=== PATIENT | male | born 1975 | race Caucasian/White ===

== ENCOUNTER 2017-11-29 23:17 | Inpatient (IN) | payer OTHER ==
[~2017-11-29] VITALS: Ht 193 cm; Wt 119.3 kg
[~2017-11-29 23:17] MED LIST: CRESTOR10 MG PO; TAMS0.4C97 PO; TOPI50TA8 PO; TRAM50TA PO
--- NOTE | 2017-11-29 23:51 | PHYS DOC ---
Past Medical History Past Medical History: High Cholesterol, Migraines Past Surgical History: Other Additional Past Surgical Histo: DUAL THORACOTOMY Alcohol Use: None Drug Use: None Adult General Chief Complaint Chief Complaint: CHEST PAIN [facility] HPI Patient is a 42 year old male who presents with chest pain. Patient had onset of left-sided chest pain around 10 PM this evening. He was at rest when the pain started. Pain is not radiating. Pain does not cause him to fill short of breath. The pain is worse with deep inspiration. There are no other aggravating or alleviating factors. He had an episode similarly about 1.5 years earlier. He states he had a negative stress test at that time. The patient does have a remote history of multiple recurring pneumothoraces which were ultimately treated with video-assisted thoracoscopy and pleurodesis. The patient states he has had no known recurrent symptoms since the procedure. He does not have any personal coronary artery disease history. Review of Systems Review of Systems Constitutional: Denies fever or chills Eyes: Denies change in visual acuity HENT: Denies nasal congestion Respiratory: Denies cough or shortness of breath Cardiovascular: No additional information not addressed in HPI GI: Denies abdominal pain Musculoskeletal: Denies back pain Integument: Denies rash or skin lesions Neurologic: Denies headache All other systems were reviewed and found to be within normal limits, except as documented in this note. Current Medications Current Medications Current Medications Medications (Trade) Dose Ordered Sig/Venkat Start Time Stop Time Status Last Admin Dose Admin Acetaminophen (Tylenol) 650 mg PRN Q4HRS PRN 11/30/17 02:30 12/01/17 02:29 UNV Ketorolac Tromethamine (Toradol 30mg Vial) 30 mg 1X ONCE 11/30/17 02:15 11/30/17 02:16 DC 11/30/17 02:04 30 MG Allergies Allergies Allergies Coded Allergies Type Severity Reaction Last Updated Verified Penicillins Allergy Intermediate 05/27/17 Yes morphine Adverse Reaction Intermediate Nausea 05/27/17 Yes Physical Exam Physical Exam Constitutional: Well developed, well nourished, no acute distress, non-toxic appearance HENT: Normocephalic, atraumatic, bilateral external ears normal, oropharynx moist Neck: Normal range of motion Cardiovascular:Heart rate regular rhythm, no murmur Lungs & Thorax: Bilateral breath sounds clear to auscultation Abdomen: Bowel sounds normal, soft, no tenderness Skin: Warm, dry, no erythema Extremities: No edema Neurologic: Alert and oriented X 3 Psychologic: Affect normal Current Patient Data Vital Signs Vital Signs Date Time Temp Pulse Resp B/P (MAP) Pulse Ox O2 Delivery O2 Flow Rate FiO2 11/30/17 02:06 64 24 124/70 (88) 98 11/29/17 23:17 96.9 Room Air 96.9 Lab Values Laboratory Tests Test 11/30/17 00:15 White Blood Count 12.0 x10^3/uL (4.0-11.0) H Red Blood Count 5.29 x10^6/uL (4.30-5.70) Hemoglobin 15.4 g/dL (13.0-17.5) Hematocrit 44.3 % (39.0-53.0) Mean Corpuscular Volume 84 fL (79-100) Mean Corpuscular Hemoglobin 29 pg (25-35) Mean Corpuscular Hemoglobin Concent 35 g/dL (31-37) Red Cell Distribution Width 13.4 % (11.5-14.5) Platelet Count 361 x10^3/uL (140-400) Neutrophils (%) (Auto) 88 % (31-73) H Lymphocytes (%) (Auto) 8 % (24-48) L Monocytes (%) (Auto) 3 % (0-9) Eosinophils (%) (Auto) 0 % (0-3) Basophils (%) (Auto) 0 % (0-3) Neutrophils # (Auto) 10.6 x10^3uL (1.8-7.7) H Lymphocytes # (Auto) 1.0 x10^3/uL (1.0-4.8) Monocytes # (Auto) 0.4 x10^3/uL (0.0-1.1) Eosinophils # (Auto) 0.0 x10^3/uL (0.0-0.7) Basophils # (Auto) 0.0 x10^3/uL (0.0-0.2) Segmented Neutrophils % 84 % (35-66) H Band Neutrophils % 1 % (0-9) Lymphocytes % 10 % (24-48) L Monocytes % 4 % (0-10) Eosinophils % 1 % (0-5) Platelet Estimate Adequate (ADEQUATE) Prothrombin Time 13.3 SEC (11.7-14.0) Prothrombin Time INR 1.1 (0.8-1.1) PTT 31 SEC (24-38) D-Dimer (Juani) < 0.27 ug/mlFEU Sodium Level 142 mmol/L (136-145) Potassium Level 3.6 mmol/L (3.5-5.1) Chloride Level 105 mmol/L (98-107) Carbon Dioxide Level 26 mmol/L (21-32) Anion Gap 11 (6-14) Blood Urea Nitrogen 13 mg/dL (8-26) Creatinine 1.0 mg/dL (0.7-1.3) Estimated GFR (Cockcroft-Gault) 82.3 Glucose Level 123 mg/dL (70-99) H Calcium Level 9.9 mg/dL (8.5-10.1) Troponin I Quantitative < 0.017 ng/mL (0.000-0.055) LS-Ypn-C-Type Natriuretic Peptide 28 pg/mL (0-124) Laboratory Tests 11/30/17 00:15 Laboratory Tests 11/30/17 00:15 EKG EKG No STEMI. NSR Interpretation Time: 23:20 Radiology/Procedures Radiology/Procedures No pneumothorax seen Course & Med Decision Making Course & Med Decision Making Pertinent Labs and Imaging studies reviewed. (See chart for details) 23:20: patient is seen and examined. No acute distress. EKG normal. Standard CP workup ordered. Offered pain meds but declines the need at this time. 02:20: Troponin is not elevated. I do not see any pneumothorax on the chest x- ray. Troponin was not elevated. EKG is nonacute. I discussed with this patient the option of remaining in the ER for repeat troponin and EKG versus admission to the hospital for chest pain rule out. The patient does not feel comfortable going home as he is concerned about his pain symptoms. Consult was placed for cardiology to evaluate the patient. Given his respiratory history of frequent pneumothoraces, I did also place a consult for pulmonology to see the patient. Patient is agreeable to the plan of care. All of his questions are answered prior to admission. Dragon Disclaimer Dragon Disclaimer This electronic medical record was generated, in whole or in part, using a voice recognition dictation system. Departure Departure Referrals: KENDELL REYNOSO MD (PCP) CHARLIE WEIR DO Nov 29, 2017 23:51
[2017-11-30 00:28] LABS: BASO % 0 % (0-3); EOS % 0 % (0-3); HEMATOCRIT 44.3 % (39.0-53.0); HEMOGLOBIN 15.4 g/dL (13.0-17.5); LYMPH % 8 % (24-48); MEAN CORPUSCULAR HEMOGLOBIN 29 pg (25-35); MEAN CORPUSCULAR HGB CONC 35 g/dL (31-37); MEAN CORPUSCULAR VOLUME 84 fL (79-100); MONO # 0.4 x10^3/uL (0.0-1.1); MONO % 3 % (0-9); NEUT # 10.6 x10^3uL (1.8-7.7); NEUT % 88 % (31-73); PLATELET COUNT 361 x10^3/uL (140-400); RED BLOOD COUNT 5.29 x10^6/uL (4.30-5.70); RED CELL DISTRIBUTION WIDTH 13.4 % (11.5-14.5)
[2017-11-30 00:39] LABS: CALCIUM 9.9 mg/dL (8.5-10.1); GFR 82.3; PARTIAL THROMBOPLASTIN TIME 31 SEC (24-38); POTASSIUM 3.6 mmol/L (3.5-5.1); PROTHROMBIN TIME PATIENT 13.3 SEC (11.7-14.0)
[2017-11-30 00:42] LABS: D-DIMER < 0.27 ug/mlFEU (0.00-0.50)
[2017-11-30 00:55] LABS: % BANDS 1 % (0-9); % EOS 1 % (0-5); % LYMPHS 10 % (24-48); % MONOS 4 % (0-10); % SEGS 84 % (35-66)
[2017-11-30 00:56] LABS: PLT ESTIMATE ADEQUATE (ADEQUATE)
[2017-11-30] MEDS ORDERED: KETOROLAC 30 MG/ML VIAL. IV ONE ×2 (02:00→02:15)
[2017-11-30] MEDS ORDERED: ACETAMINOPHEN 325 MG TABLET. PO PRN (02:30)
[2017-11-30 03:16] VITALS: BP 113/72
[2017-11-30 07:00] VITALS: BP 116/69
--- NOTE | 2017-11-30 08:07 | RAD ---
EXAM: CHEST 1 VIEW INDICATION: History of anxiety COMPARISON: None available. TECHNIQUE: Single portable radiograph of the chest FINDINGS: The cardiac silhouette is unremarkable. The lungs are clear bilaterally. The costophrenic sulci are clear and well demarcated. IMPRESSION: No radiographic evidence of an acute cardiopulmonary process. Electronically signed by: Lonnie Macdonald MD (11/30/2017 8:03 AM) [facility]
--- NOTE | 2017-11-30 09:30 | EKG ---
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
--- NOTE | 2017-11-30 10:11 | CONS ---
DATE OF CONSULTATION: REASON FOR CONSULTATION: Chest pain. HISTORY OF PRESENT ILLNESS: The patient is a pleasant 42-year-old man with a past medical history as noted below, who presents to the hospital in the setting of acute onset of chest pain approximately 10:00 p.m. on the night of presentation. He describes classic pleuritic chest pain. In the ER, initial evaluation was unremarkable for any cardiac pathology. In speaking with the patient, he denies any exertional dyspnea, orthopnea, PND or lower extremity edema. He is able to ambulate and do work around the house without any significant limitations. He occasionally does have some pain with deep inspiration. He has had this pain ever since he has had multiple pneumothoraces, status post VATS procedures. He also reports that he exercises regularly over the last 2-3 months and has been biking 5-8 miles in the morning without any significant limitations. PAST MEDICAL HISTORY: 1. Multiple pneumothoraces, treated as above. 2. Atypical chest pain, status post stress test 1.5 years ago, which was unremarkable, according to the patient. SOCIAL HISTORY: The patient denies any alcohol, tobacco or illicit drug use. 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 He is engaged. FAMILY HISTORY: Noncontributory. REVIEW OF SYSTEMS: Negative for 10 out of 14 systems reviewed, unless otherwise mentioned above in HPI. ALLERGIES: No known drug allergies. CURRENT MEDICATIONS: No current cardiovascular medication. PHYSICAL EXAMINATION: VITAL SIGNS: Stable. GENERAL: He is alert and oriented, no acute distress. HEAD AND NECK: Unremarkable. CARDIAC: Regular rate and rhythm without murmurs, rubs or gallops. LUNGS: Clear to auscultation bilaterally. ABDOMEN: Soft, nontender, nondistended. EXTREMITIES: No clubbing, cyanosis or edema. NEUROLOGIC: No focal deficits. MUSCULOSKELETAL: No trauma. DIAGNOSTIC STUDIES: EKG is unremarkable. Cardiac enzymes are negative x 2. Otherwise, no acute laboratory abnormalities noted. IMPRESSION: Noncardiac chest pain, likely pleuritic. RECOMMENDATIONS: No further cardiac testing necessary at this time. I spoke with the patient and gave him our office information. Should he continue to have any pain, could consider outpatient CT coronary angiogram for further delineation of any obstructive coronary pathology, but this is highly unlikely given he has had negative cardiac enzymes and no obvious symptoms to suggest any cardiac pathology. Await pulmonary evaluation, but otherwise the patient can be discharged from a cardiac standpoint. Thank you for this consultation. HALIMA ARREOLA MD DR: BRENDON/eric JOB#: [id number] / [id number]
--- NOTE | 2017-11-30 10:28 | PDOC1 ---
History and Physical Date of Admission Date of Admission 11/30/17 Identification/Chief Complaint Chief Complaint pleuretic type chest pain Source Source: Chart review, Patient History of Present Illness History of Present Illness Patient is a 42 year old male who presents with chest pain. Patient had onset of left-sided chest pain around 10 PM last night . He was watching TV resting when the pain started. Pain is not radiating. The pain is worse with deep inspiration. There are no other aggravating or alleviating factors. He had an episode similarly about 1.5 years earlier, at that time had a negative stress test at that time. The patient does have a history of multiple recurring pneumothoraces which were ultimately treated with video-assisted thoracoscopy and pleurodesis. The patient states he has had no known recurrent symptoms since the procedure but the pain is similar to the pneumothorax pain . denies N/ V or significant SOB Past Medical History Cardiovascular: Hyperlipidemia Pulmonary: Other (recurrent pneumothorax s/p pleuradesis) CENTRAL NERVOUS SYSTEM: Other (headaches) GI: GERD Past Surgical History Past Surgical History: Tonsillectomy, Other (pleuradesis) Family History Family History: Hypertension Social History Smoke: No ALCOHOL: none Drugs: None Current Problem List Problem List Problems Medical Problems: (1) Chest pain Status: Acute (2) History of pneumothorax Status: Acute Current Medications Current Medications Current Medications Medications (Trade) Dose Ordered Sig/Venkat Start Time Stop Time Status Last Admin Dose Admin Acetaminophen (Tylenol) 650 mg PRN Q4HRS PRN 11/30/17 02:30 12/01/17 02:29 Ketorolac Tromethamine (Toradol 30mg Vial) 30 mg 1X ONCE 11/30/17 02:15 11/30/17 02:16 DC 11/30/17 02:04 30 MG Allergies Allergies Allergies Coded Allergies Type Severity Reaction Last Updated Verified Penicillins Allergy Intermediate 05/27/17 Yes morphine Adverse Reaction Intermediate Nausea 05/27/17 Yes ROS Review of System CONSTITUTIONAL: No fever or chills EYES: No recent changes SKIN: No rash or itching CARDIOVASCULAR: as above chest pain, No syncope, palpitations, or edema RESPIRATORY: No SOB or cough GASTROINTESTINAL: No nausea, vomiting or abdominal pain NEUROLOGICAL: No headaches or weakness ENDOCRINE: No cold or heat intolerance GENITOURINARY: No urgency or frequency of urination MUSCULOSKELETAL: No back pain or joint pain LYMPHATICS: No enlarged lymph nodes PSYCHIATRIC: No anxiety or depression Physical Exam Physical Exam GEN.: No apparent distress. Alert and oriented. HEENT: Head is normocephalic, atraumatic NECK: Supple. LUNGS: Clear to auscultation. HEART: RRR, S1, S2 present. Peripheral pulses intact ABDOMEN: Soft, nontender. Positive bowel sounds. EXTREMITIES: Without any cyanosis. NEUROLOGIC: Normal speech, normal tone PSYCHIATRIC: Normal affect, normal mood. SKIN: No ulcerations Vitals Vitals Vital Signs Date Time Temp Pulse Resp B/P (MAP) Pulse Ox O2 Delivery O2 Flow Rate FiO2 11/30/17 07:45 Room Air 11/30/17 07:00 97.9 64 18 116/69 (85) 98 97.9 Labs Labs Laboratory Tests Test 11/30/17 00:15 11/30/17 05:15 11/30/17 08:30 White Blood Count 12.0 x10^3/uL (4.0-11.0) Red Blood Count 5.29 x10^6/uL (4.30-5.70) Hemoglobin 15.4 g/dL (13.0-17.5) Hematocrit 44.3 % (39.0-53.0) Mean Corpuscular Volume 84 fL (79-100) Mean Corpuscular Hemoglobin 29 pg (25-35) Mean Corpuscular Hemoglobin Concent 35 g/dL (31-37) Red Cell Distribution Width 13.4 % (11.5-14.5) Platelet Count 361 x10^3/uL (140-400) Neutrophils (%) (Auto) 88 % (31-73) Lymphocytes (%) (Auto) 8 % (24-48) Monocytes (%) (Auto) 3 % (0-9) Eosinophils (%) (Auto) 0 % (0-3) Basophils (%) (Auto) 0 % (0-3) Neutrophils # (Auto) 10.6 x10^3uL (1.8-7.7) Lymphocytes # (Auto) 1.0 x10^3/uL (1.0-4.8) Monocytes # (Auto) 0.4 x10^3/uL (0.0-1.1) Eosinophils # (Auto) 0.0 x10^3/uL (0.0-0.7) Basophils # (Auto) 0.0 x10^3/uL (0.0-0.2) Segmented Neutrophils % 84 % (35-66) Band Neutrophils % 1 % (0-9) Lymphocytes % 10 % (24-48) Monocytes % 4 % (0-10) Eosinophils % 1 % (0-5) Platelet Estimate Adequate (ADEQUATE) Prothrombin Time 13.3 SEC (11.7-14.0) Prothromb Time International Ratio 1.1 (0.8-1.1) Activated Partial Thromboplast Time 31 SEC (24-38) D-Dimer (Juani) < 0.27 ug/mlFEU Sodium Level 142 mmol/L (136-145) Potassium Level 3.6 mmol/L (3.5-5.1) Chloride Level 105 mmol/L (98-107) Carbon Dioxide Level 26 mmol/L (21-32) Anion Gap 11 (6-14) Blood Urea Nitrogen 13 mg/dL (8-26) Creatinine 1.0 mg/dL (0.7-1.3) Estimated GFR (Cockcroft-Gault) 82.3 Glucose Level 123 mg/dL (70-99) Calcium Level 9.9 mg/dL (8.5-10.1) Troponin I Quantitative < 0.017 ng/mL (0.000-0.055) < 0.017 ng/mL (0.000-0.055) < 0.017 ng/mL (0.000-0.055) BH-Jpi-T-Type Natriuretic Peptide 28 pg/mL (0-124) Laboratory Tests Test 11/30/17 00:15 11/30/17 05:15 11/30/17 08:30 White Blood Count 12.0 x10^3/uL (4.0-11.0) Red Blood Count 5.29 x10^6/uL (4.30-5.70) Hemoglobin 15.4 g/dL (13.0-17.5) Hematocrit 44.3 % (39.0-53.0) Mean Corpuscular Volume 84 fL (79-100) Mean Corpuscular Hemoglobin 29 pg (25-35) Mean Corpuscular Hemoglobin Concent 35 g/dL (31-37) Red Cell Distribution Width 13.4 % (11.5-14.5) Platelet Count 361 x10^3/uL (140-400) Neutrophils (%) (Auto) 88 % (31-73) Lymphocytes (%) (Auto) 8 % (24-48) Monocytes (%) (Auto) 3 % (0-9) Eosinophils (%) (Auto) 0 % (0-3) Basophils (%) (Auto) 0 % (0-3) Neutrophils # (Auto) 10.6 x10^3uL (1.8-7.7) Lymphocytes # (Auto) 1.0 x10^3/uL (1.0-4.8) Monocytes # (Auto) 0.4 x10^3/uL (0.0-1.1) Eosinophils # (Auto) 0.0 x10^3/uL (0.0-0.7) Basophils # (Auto) 0.0 x10^3/uL (0.0-0.2) Segmented Neutrophils % 84 % (35-66) Band Neutrophils % 1 % (0-9) Lymphocytes % 10 % (24-48) Monocytes % 4 % (0-10) Eosinophils % 1 % (0-5) Platelet Estimate Adequate (ADEQUATE) Prothrombin Time 13.3 SEC (11.7-14.0) Prothromb Time International Ratio 1.1 (0.8-1.1) Activated Partial Thromboplast Time 31 SEC (24-38) D-Dimer (Juani) < 0.27 ug/mlFEU Sodium Level 142 mmol/L (136-145) Potassium Level 3.6 mmol/L (3.5-5.1) Chloride Level 105 mmol/L (98-107) Carbon Dioxide Level 26 mmol/L (21-32) Anion Gap 11 (6-14) Blood Urea Nitrogen 13 mg/dL (8-26) Creatinine 1.0 mg/dL (0.7-1.3) Estimated GFR (Cockcroft-Gault) 82.3 Glucose Level 123 mg/dL (70-99) Calcium Level 9.9 mg/dL (8.5-10.1) Troponin I Quantitative < 0.017 ng/mL (0.000-0.055) < 0.017 ng/mL (0.000-0.055) < 0.017 ng/mL (0.000-0.055) QI-Bvx-B-Type Natriuretic Peptide 28 pg/mL (0-124) VTE Prophylaxis Ordered VTE Prophylaxis Devices: Yes VTE Pharmacological Prophylaxi: No Assessment/Plan Assessment/Plan 1- pleuretic type chest pain in pt with hx of recurrent pneumothorax and video assisted pleuradesis in the past, his CXR is Neg , D Dimer neg , cleared by CV , will obtain CTA chest he continues to feel the same 2-hyperlipidemia 3-hx of MÉNDEZ Pulmonary also has been consulted . JACOB VALERIO MD Nov 30, 2017 10:28
[2017-11-30 11:18] VITALS: BP 103/62
[2017-11-30] MEDS ORDERED: IOHEXOL 300 MG/ML 100ML VIAL. IV ONE (12:30)
[2017-11-30] MEDS ORDERED: CONTRAST GIVEN. MC PRN (12:30)
--- NOTE | 2017-11-30 14:24 | RAD ---
Examination: CT angiography chest History history of pleuritic chest pain COMPARISON: None available TECHNIQUE: Axial CT angiographic images chest were performed with IV contrast. Coronal and sagittal 3-D MIP reformats are performed Exposure: One or more of the following individualized dose reduction techniques were utilized for this examination: 1. Automated exposure control 2. Adjustment of the mA and/or kV according to patient size 3. Use of iterative reconstruction technique FINDINGS: The visualized thyroid gland grossly appears unremarkable. The central airways are patent. The heart size grossly appears unremarkable. The caliber of the aorta grossly appears unremarkable. There is no evidence of filling defect identified in the main pulmonary arterial trunk and right and left main pulmonary arteries and the visualized lobar, segmental branches of the pulmonary arteries. Linear opacity identified left lung base abutting the pleura could be infiltrate or round atelectasis. No evidence of pleural effusion or pneumothorax. The visualized liver demonstrates mild decreased attenuation likely mild hepatic steatosis. Mild degenerative changes thoracic spine. IMPRESSION: 1. No evidence of pulmonary embolism. 2. Linear airspace opacity identified in the left lung base and fissure likely infiltrate or round atelectasis. Electronically signed by: Lonnie Macdonald MD (11/30/2017 2:20 PM) [facility]
[2017-11-30 15:27] VITALS: BP 112/60
--- NOTE | 2017-11-30 15:44 | PDOC ---
PULMONARY PROGRESS NOTES Vitals Vital Signs Date Time Temp Pulse Resp B/P (MAP) Pulse Ox O2 Delivery O2 Flow Rate FiO2 11/30/17 15:27 98.8 63 18 112/60 (77) 96 Room Air 98.8 Lungs: Clear Labs Laboratory Tests Test 11/30/17 00:15 11/30/17 05:15 11/30/17 08:30 White Blood Count 12.0 x10^3/uL (4.0-11.0) Red Blood Count 5.29 x10^6/uL (4.30-5.70) Hemoglobin 15.4 g/dL (13.0-17.5) Hematocrit 44.3 % (39.0-53.0) Mean Corpuscular Volume 84 fL (79-100) Mean Corpuscular Hemoglobin 29 pg (25-35) Mean Corpuscular Hemoglobin Concent 35 g/dL (31-37) Red Cell Distribution Width 13.4 % (11.5-14.5) Platelet Count 361 x10^3/uL (140-400) Neutrophils (%) (Auto) 88 % (31-73) Lymphocytes (%) (Auto) 8 % (24-48) Monocytes (%) (Auto) 3 % (0-9) Eosinophils (%) (Auto) 0 % (0-3) Basophils (%) (Auto) 0 % (0-3) Neutrophils # (Auto) 10.6 x10^3uL (1.8-7.7) Lymphocytes # (Auto) 1.0 x10^3/uL (1.0-4.8) Monocytes # (Auto) 0.4 x10^3/uL (0.0-1.1) Eosinophils # (Auto) 0.0 x10^3/uL (0.0-0.7) Basophils # (Auto) 0.0 x10^3/uL (0.0-0.2) Segmented Neutrophils % 84 % (35-66) Band Neutrophils % 1 % (0-9) Lymphocytes % 10 % (24-48) Monocytes % 4 % (0-10) Eosinophils % 1 % (0-5) Platelet Estimate Adequate (ADEQUATE) Prothrombin Time 13.3 SEC (11.7-14.0) Prothromb Time International Ratio 1.1 (0.8-1.1) Activated Partial Thromboplast Time 31 SEC (24-38) D-Dimer (Juani) < 0.27 ug/mlFEU Sodium Level 142 mmol/L (136-145) Potassium Level 3.6 mmol/L (3.5-5.1) Chloride Level 105 mmol/L (98-107) Carbon Dioxide Level 26 mmol/L (21-32) Anion Gap 11 (6-14) Blood Urea Nitrogen 13 mg/dL (8-26) Creatinine 1.0 mg/dL (0.7-1.3) Estimated GFR (Cockcroft-Gault) 82.3 Glucose Level 123 mg/dL (70-99) Calcium Level 9.9 mg/dL (8.5-10.1) Troponin I Quantitative < 0.017 ng/mL (0.000-0.055) < 0.017 ng/mL (0.000-0.055) < 0.017 ng/mL (0.000-0.055) CF-Cjd-W-Type Natriuretic Peptide 28 pg/mL (0-124) Laboratory Tests Test 11/30/17 00:15 11/30/17 05:15 11/30/17 08:30 White Blood Count 12.0 x10^3/uL (4.0-11.0) Red Blood Count 5.29 x10^6/uL (4.30-5.70) Hemoglobin 15.4 g/dL (13.0-17.5) Hematocrit 44.3 % (39.0-53.0) Mean Corpuscular Volume 84 fL (79-100) Mean Corpuscular Hemoglobin 29 pg (25-35) Mean Corpuscular Hemoglobin Concent 35 g/dL (31-37) Red Cell Distribution Width 13.4 % (11.5-14.5) Platelet Count 361 x10^3/uL (140-400) Neutrophils (%) (Auto) 88 % (31-73) Lymphocytes (%) (Auto) 8 % (24-48) Monocytes (%) (Auto) 3 % (0-9) Eosinophils (%) (Auto) 0 % (0-3) Basophils (%) (Auto) 0 % (0-3) Neutrophils # (Auto) 10.6 x10^3uL (1.8-7.7) Lymphocytes # (Auto) 1.0 x10^3/uL (1.0-4.8) Monocytes # (Auto) 0.4 x10^3/uL (0.0-1.1) Eosinophils # (Auto) 0.0 x10^3/uL (0.0-0.7) Basophils # (Auto) 0.0 x10^3/uL (0.0-0.2) Segmented Neutrophils % 84 % (35-66) Band Neutrophils % 1 % (0-9) Lymphocytes % 10 % (24-48) Monocytes % 4 % (0-10) Eosinophils % 1 % (0-5) Platelet Estimate Adequate (ADEQUATE) Prothrombin Time 13.3 SEC (11.7-14.0) Prothromb Time International Ratio 1.1 (0.8-1.1) Activated Partial Thromboplast Time 31 SEC (24-38) D-Dimer (Juani) < 0.27 ug/mlFEU Sodium Level 142 mmol/L (136-145) Potassium Level 3.6 mmol/L (3.5-5.1) Chloride Level 105 mmol/L (98-107) Carbon Dioxide Level 26 mmol/L (21-32) Anion Gap 11 (6-14) Blood Urea Nitrogen 13 mg/dL (8-26) Creatinine 1.0 mg/dL (0.7-1.3) Estimated GFR (Cockcroft-Gault) 82.3 Glucose Level 123 mg/dL (70-99) Calcium Level 9.9 mg/dL (8.5-10.1) Troponin I Quantitative < 0.017 ng/mL (0.000-0.055) < 0.017 ng/mL (0.000-0.055) < 0.017 ng/mL (0.000-0.055) KW-Hht-G-Type Natriuretic Peptide 28 pg/mL (0-124) Medications Active Scripts Medications Dose Route/Sig Max Daily Dose Days Date Category Flomax (Tamsulosin Hcl) 0.4 Mg Cap.er.24h 0.4 Mg PO [id number] 14 05/29/17 Rx Topiramate 50 Mg Tablet 50 Mg PO BID 05/27/17 Reported Crestor (Rosuvastatin Calcium) 10 Mg Tablet 10 Mg PO HS 05/27/17 Reported Impression . NOTE DICTATED AECOPD PLEURISY SEE ORDERS THANKS ALIS RUSSO MD Nov 30, 2017 15:44
[2017-11-30] MEDS ORDERED: KETOROLAC 15 MG/ML VIAL. IV PRN (15:45)
[2017-11-30] MEDS ORDERED: ALBUTEROL SULFATE 2.5 MG/3 ML NEBU. NEB PRN (15:45)
[2017-11-30] MEDS: ALBUTEROL SULFATE 2.5 MG/3 ML NEBU. NEB SCH ×2 (16:36→19:10)
--- NOTE | 2017-11-30 16:54 | RAD ---
Examination: Bilateral Lower Extremity Venous Doppler Ultrasound History: Bilateral calf pain Comparison: None Procedure: Molina scale, color flow 2D and spectal waveform analysis images are obtained with and without compression in the area of the common femoral vein, superficial femoral vein - femoral vein junction, main femoral vein (superficial femoral vein) and popliteal vein. Veins of the proximal calf are also imaged. Findings: There is normal duplex flow, color flow and compressibility of all visualized vein segments. No evidence of deep venous thrombus is present. Impression: No evidence of DVT in the visualized bilateral lower extremity venous system. Electronically signed by: Lonnie Macdonald MD (11/30/2017 4:50 PM) [facility]
[2017-11-30] MEDS: DOXYCYCLINE HYCLATE 100 MG TABLET PO SCH (17:14)
[2017-11-30] MEDS: methylPREDNISolone SOD SUCC PF 125 MG/2 ML VIAL. IV SCH ×2 (17:15→22:48)
[2017-11-30 19:00] VITALS: BP 114/64
[2017-11-30] MEDS ORDERED: ENOXAPARIN 40 MG/0.4 ML SYRINGE. SQ SCH (21:00)
[2017-11-30] MEDS: LACTOBACILLUS RHAMNOSUS GG 1 CAPSULE. PO SCH (21:13)
[2017-11-30] MEDS: TOPIRAMATE 25 MG TABLET. PO SCH (22:47)
[2017-11-30 23:00] VITALS: BP 111/65
--- NOTE | 2017-12-01 02:01 | CONS ---
DATE OF CONSULTATION: 11/30/2017 ATTENDING PHYSICIAN: Vivek Dean MD. REASON FOR CONSULTATION: The patient seen in pulmonary consultation at the request of Dr. Dean for shortness of air, pleurisy type of discomfort. HISTORY OF PRESENT ILLNESS: The patient is a 42-year-old with what sounds like severe COPD of the emphysematous type. He has had previous labs and multiple pneumothoraces. He underwent bilateral video-assisted thorascopic approach for his recurrent pneumothoraces and blood removal. The patient presented with increasing shortness of air and pleuritic type of discomfort. He could not take a deep breath. He was traveling in the car and woke up with chest discomfort at 10:00 p.m. He was short of air, but he does not recall acute onset of shortness of air associated with syncope or any syncopal episodes. He has a cough, mostly productive of some discolored sputum. At one point, he had some mucus mixed in with blood. He quit tobacco 5 years ago. He experiences acute exacerbation of COPD approximately once a year. His home medication list was reviewed. He is currently on no metered dose inhalers. PAST MEDICAL HISTORY: COPD of the emphysematous type with previous multiple pneumothoraces, status post VATS 5 years ago. He also had a bullae or blood removed. Tobacco dependence in remission, quit 5 years ago. PAST SURGICAL HISTORY: As above. SOCIAL HISTORY: He quit tobacco 5 years ago. FAMILY HISTORY: No family history of thrombophilia. REVIEW OF SYSTEMS: CONSTITUTIONAL: No fever or chills. EYES: No change in visual acuity. HENT: No nasal congestion or sore throat. PULMONARY: As indicated above. CARDIOVASCULAR: No chest pain. No pressure. GASTROINTESTINAL: No nausea, vomiting, or diarrhea. GENITOURINARY: No dysuria or frequency. MUSCULOSKELETAL: No localized muscle aches or joint pains. SKIN: No new skin rashes. NEUROLOGIC: No headaches, diplopia or blurred vision. ALLERGIES: PENICILLIN AND MORPHINE. PHYSICAL EXAMINATION: GENERAL: The patient did not appear to be in any respiratory distress. VITAL SIGNS: O2 saturation greater than 92% on room air. HEENT: Eyes: The sclerae were nonicteric. NECK: Jugular venous distention was not elevated. No lymphadenopathy. CHEST: Full expansion. LUNGS: Some mild wheezes, poor airway flow with no rales. CARDIOVASCULAR: Regular rate and rhythm with S1, S2, no S3. ABDOMEN: Soft, nontender, nondistended. EXTREMITIES: No clubbing or cyanosis. He did have a positive Homans sign on the right. His diameter of the calf muscle on the right was larger than the left. LABORATORY DATA: White count was 12,000. Hemoglobin and hematocrit were noted. Electrolytes were noted. INR was 1.1. D-dimer was less than 0.27. CT angiogram revealed no evidence of pulmonary embolism. There were linear airspace opacities in the lung base. IMPRESSION: 1. Progressive dyspnea secondary to acute exacerbation of chronic obstructive pulmonary disease. 2. CT angiogram with no pulmonary embolism. 3. Right calf pain. 4. Tobacco dependence, in remission. 5. Pleurisy. PLAN: 1. Recommend treatment pleurisy with Toradol. 2. Nebulized treatments. 3. Prednisone. 4. Antibiotics. 5. Venous Dopplers of the lower extremities. I do appreciate the privilege in sharing in the patient's care. ALIS RUSSO MD DR: FATMATA/eric JOB#: [id number] / [id number]
[2017-12-01 03:00] VITALS: BP 113/62
[2017-12-01 06:22] LABS: CALCIUM 9.5 mg/dL (8.5-10.1); CREATININE 0.9 mg/dL (0.7-1.3); POTASSIUM 4.1 mmol/L (3.5-5.1)
[2017-12-01] MEDS: methylPREDNISolone SOD SUCC PF 125 MG/2 ML VIAL. IV SCH (06:48)
[2017-12-01 07:00] VITALS: BP 121/72
[2017-12-01] MEDS ORDERED: ACETAMINOPHEN 325 MG TABLET. PO PRN (07:00)
[2017-12-01] MEDS: ALBUTEROL SULFATE 2.5 MG/3 ML NEBU. NEB SCH ×2 (07:58→12:18)
[2017-12-01] MEDS: LACTOBACILLUS RHAMNOSUS GG 1 CAPSULE. PO SCH (08:25)
[2017-12-01] MEDS: DOXYCYCLINE HYCLATE 100 MG TABLET PO SCH (08:25)
[2017-12-01] MEDS: TOPIRAMATE 25 MG TABLET. PO SCH (08:25)
--- NOTE | 2017-12-01 10:39 | PDOC ---
PROGRESS NOTES Chief Complaint Chief Complaint feels better todat ready to go home Vitals Vitals Vital Signs Date Time Temp Pulse Resp B/P (MAP) Pulse Ox O2 Delivery O2 Flow Rate FiO2 12/01/17 08:00 Room Air 12/01/17 07:00 97.9 76 18 121/72 (88) 97 97.9 Physical Exam General: Alert, Oriented X3, Cooperative Heart: Regular rate Lungs: Clear Abdomen: Normal bowel sounds, Soft Extremities: No clubbing Skin: No rashes Labs LABS Laboratory Tests Test 12/01/17 05:15 Sodium Level 141 mmol/L (136-145) Potassium Level 4.1 mmol/L (3.5-5.1) Chloride Level 103 mmol/L (98-107) Carbon Dioxide Level 23 mmol/L (21-32) Anion Gap 15 (6-14) Blood Urea Nitrogen 15 mg/dL (8-26) Creatinine 0.9 mg/dL (0.7-1.3) Estimated GFR (Cockcroft-Gault) 93.0 Glucose Level 141 mg/dL (70-99) Calcium Level 9.5 mg/dL (8.5-10.1) Assessment and Plan Assessmemt and Plan Problems Medical Problems: (1) Chest pain Status: Acute (2) History of pneumothorax Status: Acute Comment Review of Relevant I have reviewed the following items [place] (where applicable) has been applied. Labs Laboratory Tests Test 11/30/17 00:15 11/30/17 05:15 11/30/17 08:30 12/01/17 05:15 White Blood Count 12.0 x10^3/uL (4.0-11.0) Red Blood Count 5.29 x10^6/uL (4.30-5.70) Hemoglobin 15.4 g/dL (13.0-17.5) Hematocrit 44.3 % (39.0-53.0) Mean Corpuscular Volume 84 fL (79-100) Mean Corpuscular Hemoglobin 29 pg (25-35) Mean Corpuscular Hemoglobin Concent 35 g/dL (31-37) Red Cell Distribution Width 13.4 % (11.5-14.5) Platelet Count 361 x10^3/uL (140-400) Neutrophils (%) (Auto) 88 % (31-73) Lymphocytes (%) (Auto) 8 % (24-48) Monocytes (%) (Auto) 3 % (0-9) Eosinophils (%) (Auto) 0 % (0-3) Basophils (%) (Auto) 0 % (0-3) Neutrophils # (Auto) 10.6 x10^3uL (1.8-7.7) Lymphocytes # (Auto) 1.0 x10^3/uL (1.0-4.8) Monocytes # (Auto) 0.4 x10^3/uL (0.0-1.1) Eosinophils # (Auto) 0.0 x10^3/uL (0.0-0.7) Basophils # (Auto) 0.0 x10^3/uL (0.0-0.2) Segmented Neutrophils % 84 % (35-66) Band Neutrophils % 1 % (0-9) Lymphocytes % 10 % (24-48) Monocytes % 4 % (0-10) Eosinophils % 1 % (0-5) Platelet Estimate Adequate (ADEQUATE) Prothrombin Time 13.3 SEC (11.7-14.0) Prothromb Time International Ratio 1.1 (0.8-1.1) Activated Partial Thromboplast Time 31 SEC (24-38) D-Dimer (Juani) < 0.27 ug/mlFEU Sodium Level 142 mmol/L (136-145) 141 mmol/L (136-145) Potassium Level 3.6 mmol/L (3.5-5.1) 4.1 mmol/L (3.5-5.1) Chloride Level 105 mmol/L (98-107) 103 mmol/L (98-107) Carbon Dioxide Level 26 mmol/L (21-32) 23 mmol/L (21-32) Anion Gap 11 (6-14) 15 (6-14) Blood Urea Nitrogen 13 mg/dL (8-26) 15 mg/dL (8-26) Creatinine 1.0 mg/dL (0.7-1.3) 0.9 mg/dL (0.7-1.3) Estimated GFR (Cockcroft-Gault) 82.3 93.0 Glucose Level 123 mg/dL (70-99) 141 mg/dL (70-99) Calcium Level 9.9 mg/dL (8.5-10.1) 9.5 mg/dL (8.5-10.1) Troponin I Quantitative < 0.017 ng/mL (0.000-0.055) < 0.017 ng/mL (0.000-0.055) < 0.017 ng/mL (0.000-0.055) MH-Ldt-B-Type Natriuretic Peptide 28 pg/mL (0-124) Laboratory Tests Test 12/01/17 05:15 Sodium Level 141 mmol/L (136-145) Potassium Level 4.1 mmol/L (3.5-5.1) Chloride Level 103 mmol/L (98-107) Carbon Dioxide Level 23 mmol/L (21-32) Anion Gap 15 (6-14) Blood Urea Nitrogen 15 mg/dL (8-26) Creatinine 0.9 mg/dL (0.7-1.3) Estimated GFR (Cockcroft-Gault) 93.0 Glucose Level 141 mg/dL (70-99) Calcium Level 9.5 mg/dL (8.5-10.1) Medications Current Medications Ketorolac Tromethamine (Toradol 30mg Vial) 30 mg 1X ONCE IV ; Start 11/30/17 at 02:00; Stop 11/30/17 at 02:01; Status DC Ketorolac Tromethamine (Toradol 30mg Vial) 30 mg 1X ONCE IV Last administered on 11/30/17at 02:04; Start 11/30/17 at 02:15; Stop 11/30/17 at 02:16; Status DC Acetaminophen (Tylenol) 650 mg PRN Q4HRS PRN PO FEVER; Start 11/30/17 at 02:30 ; Stop 12/01/17 at 02:29; Status DC Iohexol (Omnipaque 300 Mg/ml) 90 ml 1X ONCE IV Last administered on 11/30/17at 12:30; Start 11/30/17 at 12:30; Stop 11/30/17 at 12:31; Status DC Info (CONTRAST GIVEN -- Rx MONITORING) 1 each PRN DAILY PRN MC SEE COMMENTS; Start 11/30/17 at 12:30; Stop 12/02/17 at 12:29 Enoxaparin Sodium (Lovenox 40mg Syringe) 40 mg QHS SQ Last administered on 11/30at 21:14; Start 11/30/17 at 21:00 Albuterol Sulfate (Ventolin Neb Soln) 2.5 mg RTQID NEB Last administered on 07:58; Start 11/30/17 at 16:30 Albuterol Sulfate (Ventolin Neb Soln) 2.5 mg PRN Q2HR PRN NEB DYSPNEA; Start at 15:45 Methylprednisolone Sodium Succinate (SOLU-Medrol 125MG VIAL) 80 mg Q8HRS IV Last administered on 12/01/17at 06:48; Start 11/30/17 at 16:30 Ketorolac Tromethamine (Toradol 15mg Vial) 15 mg PRN Q6HRS PRN IV PAIN; Start 11/30/17 at 15:45; Stop 12/05/17 at 15:44 Doxycycline Hyclate (Vibra-Tab) 100 mg BID PO Last administered on 12/01/17 08 :25; Start 11/30/17 at 16:30 Lactobacillus Rhamnosus (Culturelle) 1 cap BID PO Last administered on 08:25; Start 11/30/17 at 21:00 Topiramate (Topamax) 50 mg BID PO Last administered on 12/01/17 08:25; Start 11/30/17 at 22:30 Acetaminophen (Tylenol) 650 mg PRN Q6HRS PRN PO MILD PAIN Last administered on 12/01/17 06:57; Start 12/01/17 at 07:00 Active Scripts Active Reported Topiramate 50 Mg Tablet 50 Mg PO BID Crestor (Rosuvastatin Calcium) 10 Mg Tablet 10 Mg PO HS Vitals/I & O Vital Sign - Last 24 Hours 11/30/17 11/30/17 11/30/17 11/30/17 11:18 15:27 16:36 19:00 Temp 97.9 98.8 97.7 97.9 98.8 97.7 Pulse 64 63 96 Resp 18 18 18 B/P (MAP) 103/62 (76) 112/60 (77) 114/64 (81) Pulse Ox 96 96 98 94 O2 Delivery Room Air Room Air Room Air Room Air 11/30/17 11/30/17 11/30/17 12/01/17 19:10 20:00 23:00 03:00 Temp 97.5 97.9 97.5 97.9 Pulse 90 90 Resp 18 18 B/P (MAP) 111/65 (80) 113/62 (79) Pulse Ox 99 94 96 O2 Delivery Room Air Room Air Room Air Room Air 12/01/17 12/01/17 12/01/17 07:00 07:58 08:00 Temp 97.9 97.9 Pulse 76 Resp 18 B/P (MAP) 121/72 (88) Pulse Ox 97 O2 Delivery Room Air Room Air Room Air Intake and Output 11/30/17 11/30/17 12/01/17 15:00 23:00 07:00 Intake Total 240 ml Balance 240 ml JACOB VALERIO MD Dec 01, 2017 10:39
[2017-12-01 11:00] VITALS: BP 114/69
--- NOTE | 2017-12-01 12:26 | PDOC3 ---
*Discharge Summary* Date of Admission: Nov 29, 2017 Date of Discharge: Dec 01, 2017 Admitting Diagnosis Problems Medical Problems: (1) Chest pain Status: Acute (2) History of pneumothorax Status: Acute Final Diagnosis 1- pleuretic type chest pain in pt with hx of recurrent pneumothorax and video assisted pleuradesis in the past, his CXR is Neg , D Dimer neg , cleared by CV , CTA chest negative 2-hyperlipidemia 3-hx of MÉNDEZ Problems Medical Problems: (1) Chest pain Status: Acute (2) History of pneumothorax Status: Acute CONSULTS cardiology, pulmonary Procedures CXR neg CT chest atelactasis vs infiltrate left lung Lower ext venous doppler USE neg Brief Hospital Course Mr. Marsh is a 42 old [sex] who presented with [ ] CONDITION AT DISCHARGE: Improved Diet: Clear Liquids, Cardiac Home Meds Active Scripts Indomethacin (INDOMETHACIN) 25 Mg Capsule, 1 CAP PO BID, #28 CAP Prov:JACOB VALERIO MD 12/01/17 Albuterol Sulfate (PROAIR HFA INHALER) 8.5 Gm Hfa.aer.ad, 1 PUFF INH PRN Q6HRS PRN for SHORTNESS OF BREATH for 30 Days, #1 INHALER 2 Refills Prov:JACOB VALERIO MD 12/01/17 Prednisone (PREDNISONE ) 10 Mg Tablet, 10 MG PO UD for PREDNISONE TAPER, #39 TAB 0 Refills Take 3 tablets by mouth twice a day for 3 days, then take 2 tablets by mouth twice a day for 3 days, then take 1 tablet by mouth twice a day for 3 days, then take 1 tablet by mouth daily x 3 days, then stop. Prov:JACOB VALERIO MD 12/01/17 Lactobacillus Rhamnosus Gg (CULTURELLE) 1 Each Cap.sprink, 1 CAP PO BID for 14 Days, #28 CAP Prov:JACOB VALERIO MD 12/01/17 Doxycycline Hyclate (DOXYCYCLINE HYCLATE) 100 Mg Tablet, 100 MG PO BID for 10 Days, #20 TAB 0 Refills Prov:JACOB VALERIO MD 12/01/17 Reported Medications Topiramate (TOPIRAMATE) 50 Mg Tablet, 50 MG PO BID, TAB 05/27/17 Rosuvastatin Calcium (CRESTOR) 10 Mg Tablet, 10 MG PO HS for FOR CHOLESTEROL, # 30 TAB 0 Refills 05/27/17 Scheduled Doxycycline Hyclate (Doxycycline Hyclate), 100 MG PO BID Indomethacin (Indomethacin), 1 CAP PO BID Lactobacillus Rhamnosus Gg (Culturelle), 1 CAP PO BID Prednisone (Prednisone ), 10 MG PO UD Rosuvastatin Calcium (Crestor), 10 MG PO HS, (Reported) Topiramate (Topiramate), 50 MG PO BID, (Reported) Scheduled PRN Albuterol Sulfate (Proair Hfa Inhaler), 1 PUFF INH PRN Q6HRS PRN for SHORTNESS OF BREATH Scripts Indomethacin (INDOMETHACIN) 25 Mg Capsule 1 CAP PO BID, #28 CAP Prov: JACOB VALERIO MD 12/01/17 Albuterol Sulfate (PROAIR HFA INHALER) 8.5 Gm Hfa.aer.ad 1 PUFF INH PRN Q6HRS PRN for SHORTNESS OF BREATH for 30 Days, #1 INHALER 2 Refills Prov: JACOB VALERIO MD 12/01/17 Prednisone (PREDNISONE ) 10 Mg Tablet 10 MG PO UD for PREDNISONE TAPER, #39 TAB 0 Refills Take 3 tablets by mouth twice a day for 3 days, then take 2 tablets by mouth twice a day for 3 days, then take 1 tablet by mouth twice a day for 3 days, then take 1 tablet by mouth daily x 3 days, then stop. Prov: JACOB VALERIO MD 12/01/17 Lactobacillus Rhamnosus Gg (CULTURELLE) 1 Each Cap.sprink 1 CAP PO BID for 14 Days, #28 CAP Prov: JACOB VALERIO MD 12/01/17 Doxycycline Hyclate (DOXYCYCLINE HYCLATE) 100 Mg Tablet 100 MG PO BID for 10 Days, #20 TAB 0 Refills Prov: JACOB VALERIO MD 12/01/17 FOLLOW UP APPOINTMENT: pcp 1-2 weeks then pilmonary 4-6 weks Time Spent Total time spent with patient [] minutes for coordination of care, counseling, and education. JACOB VALERIO MD Dec 01, 2017 12:26
[2017-12-01] MEDS ORDERED: POLYETHYLENE GLYCOL 3350 17 GM PACKET. PO ONE ×2 (12:30)
[2017-12-01] MEDS ORDERED: PRED-220 PO (12:31)
[2017-12-01] MEDS ORDERED: DOXY100T PO (12:31)
[2017-12-01] MEDS ORDERED: PROAIR HFA8.5 GM INH (12:31)
[2017-12-01] MEDS ORDERED: INDO25CA5 PO (12:31)
[2017-12-01] MEDS ORDERED: LACT1CAP19 PO (12:31)
== END 2017-12-01 13:16 | disposition home or self-care (01) | DRG 194 ==
LOC: ER 23:17 → 5 NORTH 11-30 02:15
PROVIDERS: ADMIT Internal Medicine; ATTEND Internal Medicine
DX: R09.1 Pleurisy (principal); J44.1 Chronic obstructive pulmonary disease with (acute) exacerbation; E78.00 Pure hypercholesterolemia, unspecified; E78.5 Hyperlipidemia, unspecified; K21.9 Gastro-esophageal reflux disease without esophagitis; G43.909 Migraine, unspecified, not intractable, without status migrainosus; F17.201 Nicotine dependence, unspecified, in remission; Z71.89 Other specified counseling; Z88.5 Allergy status to narcotic agent; Z88.0 Allergy status to penicillin; Z82.49 Family history of ischemic heart disease and other diseases of the circulatory system
CPT/HCPCS: 36415; 71045; 71275; 80048; 83880; 84484; 85007; 85025; 85379; 85610; 85730; 93005; 93970; 94640; 96374; J1650; J1885; J2930; J7613; Q9967; 99285-25

== ENCOUNTER → 2018-01-27 | Outpatient (CLI) | payer OTHER ==
[~2018-01-27] MED LIST changes: +DOXY100T PO; +INDO25CA5 PO; +LACT1CAP19 PO; +PRED-220 PO; +PROAIR HFA8.5 GM INH
--- NOTE | 2018-01-27 13:42 | PCVCIMAG ---
APPROVED REPORT Study performed: 01/27/2018 11:40:05 Exam: Stress Echocardiogram Indication: Chest pain, hx pneuomthorax, near syncope, hlp Patient Location: Echo lab Stress Nurse: Lavern Lobato RN Status: routine Ht: 6 ft 4 in HR: 78 bpm BP: 114/80 mmHg Rhythm: NSR Procedure The patient underwent an Exercise Stress Test using the Ascencion Protocol. Blood pressure, heart rate, and EKG were monitored. An Echocardiogram was performed by instrument and electrical technician in four stages in quad fashion. At peak stress, four selected images were obtained and placed side by side with resting images for comparison. Stress Test Details Stress Test: Exercise stress testing was performed using a Ascencion protocol. HR Resting HR: 76 bpmMax Heart Rate (APMHR): 179 bpm Max HR Achieved: 173 bpmTarget HR (85% APMHR): 152 bpm % of APMHR: 96 Recovery HR: 89 bpm HR response to stress: Normal HR response to stress BP Resting BP: 114/80 mmHg Max BP: 150/84 mmHg Recovery BP: 142/84 mmHg BP response to stress: Normal blood pressure response to stress. ECG Resting ECG: Sinus Rhythm Stress ECG: Sinus Rhythm ST Change: Normal Maximum ST Deviation: 0 mm Arrhythmia: occasional isolated PVC or PAC Recovery ECG: Sinus Rhythm Recovery ST Change: Normal Recovery Arrhythmia: None Clinical Reason for Termination: Maximal effort, Dyspnea Stress Symptoms: Dyspnea Exercise duration: 9 min sec Highest Stage Achieved: Stage 3: 3.4 mph at 14% grade. Exercise capacity: 10.4 METs Overall Exercise Capacity for Age: Normal Scale: Active Angina Score: None Stress ECG Conclusion Clinical: Non-ischemic ECG: Non-ischemic Garza Treadmill Score is 9.0 which is Low risk. Pre-Stress Echo The resting Echocardiogram showed normal left ventricular contractility with an estimated Ejection Fraction of about 55%. Normal wall motion in all segments on baseline images. Post-Stress Echo The stress Echocardiogram showed normal left ventricular contractility with an estimated Ejection Fraction of about 65%. Normal augmentation of wall motion in all segments on post stress images. Clinical No clinical or ECG evidence for ischemia. Conclusion Clinical Response: Non-ischemic Exercise Capacity: Average Stress ECG Response: Non-ischemic Stress Echo Images: Non-ischemic The left ventricle is normal in size and wall thickness in both the rest and stress images. Normal stress echocardiogram with maximal exercise stress. Other Information Study Quality: Adequate <Conclusion> The left ventricle is normal in size and wall thickness in both the rest and stress images. Normal stress echocardiogram with maximal exercise stress.
--- NOTE | 2018-01-27 13:46 | PCVCIMAG ---
APPROVED REPORT Study performed: 01/27/2018 10:43:20 EXAM: Comprehensive 2D, Doppler, and color-flow Echocardiogram Patient Location: Echo lab Status: routine BSA: 2.41 HR: 65 bpmBP: 114/80 mmHg Rhythm: NSR Other Information Study Quality: Adequate Indications Chest Pain hx of pneumothorax, rule out pericardial effusion 2D Dimensions IVSd: 10.60 (7-11mm) LVDd: 41.08 mm PWd: 9.80 (7-11mm) LVDs: 31.43 (25-40mm) Left Atrium: 39.42 (27-40mm) Aortic Root: 31.37 mm LV Single Plane 4CH: 52.92 % LV Single Plane 2CH: 60.68 % Biplane EF: 56.5 % Volumes Left Atrial Volume (Systole) Single Plane 4CH: 56.43 mLSingle Plane 2CH: 64.09 mL LA ESV Index: 26.00 mL/m2 Aortic Valve AoV Peak Dariusz.: 1.14 m/s AO Peak Gr.: 5.20 mmHgLVOT Max P.64 mmHg LVOT Max V: 0.95 m/s Mitral Valve E/A Ratio: 1.5 MV Decel. Time: 278.26 ms MV E Max Dariusz.: 0.65 m/s MV A Dariusz.: 0.44 m/s IVRT: 103.81 ms Pulmonary Valve PV Peak Dariusz.: 0.78 m/sPV Peak Gr.: 2.43 mmHg Pulmonary Vein P Vein S: 0.24 m/sP Vein A: 0.41 m/s P Vein D: 0.49 m/sP Vein A Dur.: 152.2 msec P Vein S/D Ratio: 0.49 Tricuspid Valve TR Peak Dariusz.: 2.26 m/s TR Peak Gr.: 20.35 mmHg TV Vmax: 0.39 m/s Left Ventricle The left ventricle is normal size. There is normal LV segmental wall motion. There is normal left ventricular wall thickness. Left ventricular systolic function is normal. The left ventricular ejection fraction is within the normal range. LVEF is 55-60%. The left ventricular diastolic function is normal. Right Ventricle The right ventricle is normal size. The right ventricular systolic function is normal. Atria The left atrium size is normal. The right atrium size is normal. Aortic Valve The aortic valve is normal in structure. No aortic regurgitation is present. There is no aortic valvular stenosis. Mitral Valve The mitral valve is normal in structure. Trace mitral regurgitation. No evidence of mitral valve stenosis. Tricuspid Valve The tricuspid valve is normal in structure. Mild tricuspid regurgitation with PAP of 27 mmHg. Pulmonic Valve The pulmonary valve is normal in structure. There is no pulmonic valvular regurgitation. Great Vessels The aortic root is normal in size. IVC is normal in size and collapses >50% with inspiration. Pericardium There is no pericardial effusion. There is no pleural effusion. <Conclusion> 1. Normal echocardiogram with Doppler. EF 60% 2. Pulmonary artery pressure of 27mmHg 3. No pericardial effusion
== END | disposition home or self-care (01) ==
LOC: PCVCIMAG 11:12
PROVIDERS: ATTEND Internal Medicine
DX: J93.83 Other pneumothorax (principal); R07.1 Chest pain on breathing; E78.5 Hyperlipidemia, unspecified; R55 Syncope and collapse
CPT/HCPCS: 93306; 93351